=== PATIENT | male | born 1985 | race Caucasian/White ===

== ENCOUNTER 2016-08-21 21:34 | Emergency (ER) | payer BC ==
--- NOTE | 2016-08-23 00:14 | ER ---
ADMIT: 08/21/2016 RM/LOC: ER [facility] MR#: [id number] [address] [facility] [address] [place] [id number] WILBER TORRES [address] [place] [address] Emergency Room Report SEX: M AGE: 31 : 1985 DATE: 08/21/2016 TIME: 2133 Please refer to my T-sheet for complete H and P. HISTORY OF PRESENT ILLNESS: Briefly, the patient is a 31-year-old who has nosebleed, was seen up in [place]. His blood pressure was high because he has not taken his blood pressure medications. They could not get it stopped. They sent him down here for our evaluation. Patient states it has been going on about 3-1/2 hours, normally does not get nosebleeds. He is pretty healthy otherwise, but he has not been taking his blood pressure medications. PHYSICAL EXAMINATION: VITAL SIGNS: Blood pressure 139/98 here; however, he had clonidine and Demerol up there, which seemed to help. Pulse 115, respirations 24, temp 96.9, saturating 98%. GENERAL: No acute distress. HEENT: He has mild active bleeding on the left naris, but it is still packed. Right naris dry. Throat clear. NECK: Soft, supple. EMERGENCY DEPARTMENT COURSE: I removed the packing that was in there, had him blow all the clots out. We packed with adrenaline-soaked gauze, left it in for 30 minutes, I removed. He had no active bleeding. I could see where the previous bleeding was from in the left naris and the anterior Kiesselbach's plexus. I cauterized it after using lidocaine with silver nitrate, packed again with adrenaline-soaked gauze, removed that. He was not bleeding at this time. He felt much better. I did give him a dose of his lisinopril 10 mg p.o. and hydrochlorothiazide 25 p.o. I have refills for lisinopril, hydrochlorothiazide, and Norvasc. ASSESSMENT: 1. Acute left anterior epistasis. 2. Hypertension, poorly controlled. 3. Cauterize done in the emergency department as above. PLAN: If it should recur, blow his nose. Hold pressure 20 minutes and then repeat a couple of times. If he cannot stop, return. Afrin t.i.d. for 2 days. Follow up with Dr. Harding as needed. Take his blood pressure medications. I refilled his lisinopril, hydrochlorothiazide, and Norvasc and follow up with Enrique. David Guillory MD/ liya JOB #: [id number] CC: David Guillory MD, Attending Physician ADMIT: 08/21/2016 RM/LOC: [facility] MR#: [id number] [address] [place] [id number] WILBER TORRES [address] [place] [address] Emergency Room Report SEX: M AGE: 31 : 1985 Mychal Nunez MD, Family Physician
== END 2016-08-21 23:05 | disposition home or self-care (01) ==
LOC: ER 21:34
PROC: 0W3Q7ZZ Control Bleeding in Respiratory Tract, Via Natural or Artificial Opening (ICD-10-PCS; principal; 2016-08-21)
DX: R04.0 Epistaxis (principal); I10 Essential (primary) hypertension; Z79.899 Other long term (current) drug therapy

== ENCOUNTER 2016-10-11 09:12 | Emergency (ER) | payer BC ==
--- NOTE | 2016-10-11 16:19 | ER ---
ADMIT: 10/11/2016 RM/LOC: ER [facility] MR#: [id number] [address] [facility] [address] [place] [phone] WILBER TORRES [address] [place] [address] Emergency Room Report SEX: M AGE: 31 : 1985 DATE: 10/11/2016 TIME: 0912 hours. Please refer to my T-sheet for complete H and P. Briefly, the patient is a 31-year-old who comes in with nosebleed, started last night. He went in to [place], they had it stopped. He now comes down here because it has become worse. It started again at 7:45 this morning. He has had a nose bleed a couple months ago. He was in the ER, but really has done very well. Otherwise he is not anticoagulated. Denies any trauma. PHYSICAL EXAMINATION: VITAL SIGNS: Blood pressure 165/100, pulse 62, respirations 18, temp 96.9, and sat 99%. GENERAL: No acute distress. HEENT: His right naris is actively bleeding. Left one is dry. Throat some posterior blood drainage. LUNGS: Clear. HEART: Regular. ABDOMEN: Soft. EMERGENCY DEPARTMENT COURSE: I had him blow the clots out. We packed both nares with adrenaline-soaked gauze, waited about 30 minutes. I removed the gauze. I could see where it was bleeding anteriorly on the right. I cauterized with silver nitrate. The patient tolerated well. We repacked him with adrenaline-soaked gauze. He had resolution of his bleeding. I had a long discussion with him. They are ready for discharge. ASSESSMENT: 1. Acute anterior epistaxis, right naris. 2. Cautery of #1 done in the Emergency Department by myself. PLAN: I left the packing, I am going to remove it in a couple hours. Return if worse. Use Afrin as needed. Continue humidifier and follow up with Dr. Harding. David Guillory MD/ liya JOB #: [id number] CC: David Guillory MD, Attending Physician
== END 2016-10-11 10:45 | disposition home or self-care (01) ==
LOC: ER 09:12
PROC: 0W3Q7ZZ Control Bleeding in Respiratory Tract, Via Natural or Artificial Opening (ICD-10-PCS; principal; 2016-10-11)
DX: R04.0 Epistaxis (principal); I10 Essential (primary) hypertension; Z79.899 Other long term (current) drug therapy